=== PATIENT | male | born 1965 | race Caucasian/White ===

== ENCOUNTER 2016-11-20 16:15 | Inpatient (IN) ==
[2016-11-20] MEDS ORDERED: NALOXONE 0.4 MG/ML VIAL ONE (16:44)
[2016-11-20] MEDS ORDERED: NALOXONE 0.4 MG/ML VIAL IV STA (16:51)
[2016-11-20] MEDS ORDERED: SODIUM CHLORIDE 0.9% 1,000 ML IV STA (16:51)
[2016-11-20] MEDS ORDERED: DIPH/TET/ACEL PERT BOOSTER VACCINE 0.5 ML VIAL IM ONE ×2 (16:54→17:14)
--- NOTE | 2016-11-20 17:14 | CT Report ---
Referring physician: Tk Garcia Exam: CT brain without contrast Date: 11/20/2016 Comparison: None Reason: Alteration of consciousness Technique: Axial images of the head were obtained without the use of contrast. Total DLP was 1225.60 mGy*cm. Findings: No hydrocephalus or midline shift is present. There is no evidence of an acute infarction, recent intracranial hemorrhage or abnormal mass effect. More prominent atrophy with prominent subarachnoid spaces in the right temporal and left temporoparietal occipital location with chronic appearing adjacent infarcts. The osseous structures appear intact. The mastoid air cells are clear. Minimal mucosal thickening in the visualized paranasal sinuses. Impression: No acute intracranial abnormality is identified. Chronic bilateral MCA distribution infarcts with associated atrophy and prominent subarachnoid spaces with findings more pronounced on the left. Minimal sinusitis. The CT exam was performed using one or more of the following dose reduction techniques: Automated exposure control and adjustment of the mA and/or kV according to patient size. PROCEDURE INTERPRETED AT [facility] DEPARTMENT OF RADIOLOGY Final Report Signed by: Dr. Hilary Pena
--- NOTE | 2016-11-20 17:17 | CT Report ---
Exam: CT cervical spine without contrast Date: 11/20/2016 Comparison: None Reason: Neck trauma, neck pain after fall Technique: Axial images of the cervical spine were obtained without the use of contrast. Sagittal and coronal reformatted images were also acquired. Total DLP is 303.3 mGy*cm. Findings: The alignment of the cervical spine is unremarkable. Sclerosis with osteophytes. Arterial calcifications are noted. At C2-C3, no neuroforaminal narrowing or spinal canal stenosis is identified. At C3-C4, osteophyte/disc complex which contacts the thecal sac. No spinal stenosis with moderate bilateral foraminal stenosis. At C4-C5, osteophyte/disc complex which compresses the thecal sac. Minimal spinal stenosis and right foraminal stenosis with moderate left foraminal stenosis. At C5-C6, osteophyte/disc complex which contacts thecal sac. No spinal stenosis with moderate bilateral foraminal stenosis. At C6-C7, no neuroforaminal narrowing or spinal canal stenosis is identified. At C7-T1, no neuroforaminal narrowing or spinal canal stenosis is identified. Impression: No evidence of fracture dislocation. Multilevel DDD as above noted. This CT exam was performed using one or more of the following dose reduction techniques: Automatic exposure control, adjustment of the MA and/or KV according to patient size, or use of iterative reconstruction technique. PROCEDURE INTERPRETED AT [facility] DEPARTMENT OF RADIOLOGY Final Report Signed by: Dr. Hilary Pena
--- NOTE | 2016-11-20 17:22 | XRay Report ---
Portable chest Date: 11/20/2016 Clinical history: Alteration of consciousness Comparison: 12/25/2011 Technique: Portable AP sitting chest Findings: The heart is larger in size with prior median sternotomy and cardiac valve replacement. Chronic scarring in the lungs. Old healed fracture of the right seventh posterior rib. Degenerative changes are noted. Impression: The heart is minimally enlarged with prior median sternotomy and cardiac valve replacement. Chronic scarring. Interval fracture of the right seventh posterior rib with callus formation noted. PROCEDURE INTERPRETED AT [facility] DEPARTMENT OF RADIOLOGY Final Report Signed by: Dr. Hilary Pena
--- NOTE | 2016-11-20 17:23 | XRay Report ---
Exam: XR knee 2V BI Date: 11/20/2016 4:54 PM Comparison: None Indication: Knee abrasion and knee pain Technique:[AP and lateral bilateral knee] Findings: Minimal knee joint space narrowing. Small left patellar osteophytes. Minimal soft tissue swelling with no fracture or dislocation. Arterial calcifications are noted. Impression: Mild DJD with soft tissue swelling and arterial calcifications. No fracture or dislocation. PROCEDURE INTERPRETED AT [facility] DEPARTMENT OF RADIOLOGY Final Report Signed by: Dr. Hilary Pena
--- NOTE | 2016-11-20 17:29 | Emergency Department Note ---
Geraldo Ponce Hilary, am scribing for, and in the presence of, Tk Garcia MD 16:55. Radha Ponce Charles R, MD, personally performed the services described in this documentation, ascribed by Daniela Chow in my presence, and it is both accurate and complete 729 . Arrival - Arrival Chief Complaint: Neuro Stated Complaint: found unresponsive per family members ED Nursing Triage Note: Patient lives by his self; his family found him unresponsive today and called EMS at 1500; they are unaware how long he was down and unresponsive; Fentanyl 100mcg/hr removed per EMS. Another 100mcg Fentanyl removed right rib cage on his arrival in the room. He was found laying on his porch; possible fall; left scalp laceration is present Mode of Arrival: Stretcher Limitations: Altered Mental Status Source: RN Notes Reviewed Time Seen by Provider: 11/20/16 16:39 - History of Present Illness HPI Narrative: Pt is a 51 y/o male brought to the ED via EMS with c/o AMS. Pt lives alone and his family found him unresponsive outside in the rain and called EMS at 1500; they are unaware of how long he was down and unresponsive. Fentanyl 100mcg/hr was removed by EMS and then another was removed once in the ED. Multiple lacerations present to his face and old bruising on his arms and knees. GCS - 12. Onset (ago): hour(s) Allergies/Adverse Reactions: Allergies Allergy/AdvReac Type Severity Reaction Status Date / Time Unable to Obtain Allergy Unverified 11/20/16 17:01 Home Medications: Home Medications Medication Instructions Recorded Confirmed Type Carvedilol 25 mg PO BID 11/20/16 11/20/16 History LORazepam [Lorazepam] 2 mg PO TID PRN 11/20/16 11/20/16 History Lisinopril 5 mg PO DAILY 11/20/16 11/20/16 History Tizanidine HCl 4 mg PO TID 11/20/16 11/20/16 History Warfarin Sodium 2.5 mg PO SUSA 11/20/16 11/20/16 History Warfarin Sodium 5 mg PO MOTUWETHFR 11/20/16 11/20/16 History buPROPion HCl [Bupropion Xl] 150 mg PO BID 04/17/17 04/17/17 History Review of System - Review of System ROS unobtainable: due to mental status - Review of System Psychiatric: Present: other Medical,Surgical,& Family Hx - Medical History Cardio: History of: CAD, Hypertension - Social History Smoking Status: Unknown if ever smoked Frequency of Alcohol Use: Unknown Type of Drug Use: Unknown Exam Vital Signs: Vital Signs Temperature 96.5 F L 11/20/16 16:17 Pulse Rate 92 H 11/20/16 16:17 Respiratory Rate 12 11/20/16 16:17 Blood Pressure 66/40 11/20/16 16:17 O2 Sat by Pulse Oximetry 94 L 11/20/16 16:17 - General Exam limited due to: level of distress - Head Head exam: Present: atraumatic, normocephalic - Eye Eye exam: Present: nystagmus (slight), other (slow to react ) - Neck Neck exam: Present: full ROM, trachea midline - Chest Chest inspection: Present: symmetric chest wall rise - Respiratory Respiratory exam: Present: normal lung sounds bilaterally - Cardiovascular Cardiovascular exam: Present: tachycardia - Extremities Exam Extremities exam: Present: full ROM - Back Exam Back exam: Present: full ROM - Neurological Exam Neurological exam: Present: alert, CN II-XII intact - Psychiatric Psychiatric exam: Present: other (Non responsive) - Skin Skin exam: Present: normal color, other (old abraisons on knees and discoloration to arms (bruising)). Absent: warm (cold) Course Course Narrative: Procedure note NG tube was placed - Reevaluation(s) Reevaluation #1: Patient's GCS has changed to 6. I placed several nino in his head he did not move. Patient only response was to Narcan which is short-lived which he did wake up became aggressive. Patient will be intubated to protect his airway Time: 18:33 - Consultations Consultation #1: Hospitalist will admit patient Time: 18:33 Procedures - Intubation sedative: Etomidate Mg Given: 20 paralytic: Vecuronium Mg Given: 10 Laryngoscope: fiber optic video scope ET Tube Size: 7.5 ET Tube Uncuffed: No Tube Secured Depth (cm): 21 Tube Secured Location: lips Tube Placement Confirmation: visualized tube passing through cords, equal breath sounds bilaterally, confirmation by capnometry, confirmation detector color change Patient Tolerated Procedure: well, no complications Intubation Complications: none - Laceration Laceration 1 Site: scalp Size (cm): 2 Description: irregular Depth: simple, single layer Pre-repair: wound explored, irrigated extensively, deep structures intact Skin layer closed with: other (Staple gun) Number of sutures: 5 Results - Labs CBC & BMP: 11/20/16 17:42 11/20/16 17:42 Lab Results: I have reviewed the patients labs - Diagnostic Findings Procedure: CT: report reviewed by me (Cervical spine: No evidence of fracture dislocation. Multilevel DDD as above noted. Head/brain: No acute intracranial abnormality is identified. Chronic bilateral MCA distribution infarcts with associated atrophy and prominent subarachnoid spaces with findings more pronounced on the left. Minimal sinusitis.) Critical Care Time Critical Care Time: Yes Total Critical Care Time: 90 Disposition Clinical Impression: Drug overdoses, Decreased LOC, Hypotension, Debility, Failure to thrive, Chronic opiate dependency, Acute renal failure, Hyperkalemia, Dehydration, Polysubstance abuse Case discussed with: patient, patient's family Disposition: Still a Patient Condition: Critical Time of Disposition: 18:23
[2016-11-20] MEDS ORDERED: ceFAZolin 1,000 MG VIAL ONE (17:36)
[2016-11-20 17:58] LABS: Basophils % 0.1 % (0.0-0.8); Hematocrit 36.7 VOL% (42.0-52.0); Hemoglobin 11.9 GM/DL (14.0-18.0); Immature Granulocytes % 0.3 %; Immature Granulocytes Absolute 0.03 #; Lymphocytes # 0.5 10*3/uL (1.4-4.0); Lymphocytes % 4.9 % (21.2-54.2); Mean Corpuscular HGB Conc 32.4 GM/DL (32-36); Mean Corpuscular Hemoglobin 31 PG (27-34); Mean Corpuscular Volume 95.6 FL (87-102); Mean Platelet Volume 12.3 FL (9.6-12.0); Monocytes # 1.6 10*3/uL (0.11-0.8); Monocytes % 14.9 % (1.7-12.7); Neutrophils # 8.6 10*3/uL (1.4-7.4); Neutrophils % 79.8 % (38.7-73.9); Platelet Count 151 T/CUMM (130-400); Red Blood Count 3.84 MC/CUMM (3.8-5.5); Red Cell Distribution Width 14.3 % (9.3-17.3); White Blood Count 10.8 T/CUMM (4-12)
[2016-11-20 18:07] LABS: Ammonia 16 UMOL/L (11-32)
[2016-11-20 18:12] LABS: Apearance,Urine CLOUDY (Clear); Bilirubin,Urine Negative (Negative); Blood, Urine Negative (Negative); Glucose,Urine (UA) Negative (Negative); Ketones,Urine 5 mg/dL (Negative); Mucus,Urine Occasional /LPF (Occasional); Nitrite,Urine Negative (Negative); Protein,Urine 30 MG/DL; Urine Color Amber (Yellow); Urine Specific Gravity 1.021 (1.001-1.035); Urine Urobilinogen < 2.0 EU/DL (0.2-1.0); WBC,Urine 3 /HPF (0-6)
[2016-11-20 18:21] LABS: Alanine Aminotransferase 89 U/L (16-61); Albumin 3.6 G/DL (3.4-5.0); Alkaline Phosphatase 82 U/L (45-117); Aspartate Amino Transferase 274 U/L (0-37); Blood Urea Nitrogen 115 MG/DL (7-18); Calcium 7.1 MG/DL (8.5-10.1); Glucose 68 MG/DL (74-106); Magnesium 3.1 MG/DL (1.8-2.4); Osmolality,Calculated 309.7 MOS/KG (273-304); Sodium 138 MMOL/L (136-145); Total Protein 6.2 G/DL (6.4-8.3)
[2016-11-20 18:22] LABS: Troponin I Only 0.058 NG/ML (0.00-0.045)
[2016-11-20] MEDS ORDERED: DEXTROSE 50% 25 GM/50 ML VIAL IV STA (18:25)
[2016-11-20] MEDS ORDERED: CALCIUM GLUCONATE 1,000 MG in SODIUM CHLORIDE 0.9% 100 ML IV ONE (18:29)
[2016-11-20] MEDS ORDERED: CALCIUM CHLORIDE 1,000 MG/10 ML SYRINGE IV ONE (18:30)
[2016-11-20] MEDS ORDERED: DEXTROSE 50% 25 GM/50 ML VIAL IV ONE (18:30)
[2016-11-20] MEDS ORDERED: PHENYLEPHRINE DRIP 40 MG/250 ML PREMIX IV ONE (18:34)
[2016-11-20] MEDS: PHENYLEPHRINE DRIP 40 MG/250 ML PREMIX IV SCH ×2 (18:39→23:21)
[2016-11-20] MEDS ORDERED: INSULIN REGULAR 100 UNIT/ML ONE (18:47)
[2016-11-20] MEDS ORDERED: INSULIN REGULAR 100 UNIT/ML IV STA (18:51)
[2016-11-20] MEDS ORDERED: LACTATED RINGERS 1,000 ML IV ONE (18:51)
[2016-11-20 18:56] LABS: Barbiturates Screen,Urine Negative (Negative); Benzodiazepines Screen,Urine Positive (Negative); Cannabinoid Screen,Urine Negative (Negative); Opiate Screen,Urine Positive (Negative); Phencyclidine Screen,Urine Negative (Negative)
[2016-11-20] MEDS ORDERED: VECURONIUM 10 MG VIAL IV ONE (19:15)
[2016-11-20] MEDS ORDERED: ETOMIDATE 20 MG/10 ML VIAL IV ONE (19:15)
[2016-11-20 19:28] LABS: PT Patient Result > 200.0 SECS
[2016-11-20 19:31] LABS: INR > 20.0
[2016-11-20] MEDS ORDERED: PHYTONADIONE 10 MG/1 ML AMP SUBCUT ONE ×2 (19:39)
--- NOTE | 2016-11-20 19:39 | XRay Report ---
Portable chest Date: 11/20/2016 Clinical history: Endotracheal tube placement Comparison: 11/20/2016 Technique: Portable AP sitting chest Findings: The heart remains enlarged with prior median sternotomy and cardiac valve replacement. The tip of the endotracheal tube projects the level clavicles. The tip of the nasogastric tube projects at the GE junction. Chronic scarring in the lungs with progressive parenchymal findings in the lower lung zones. Old healed right seventh posterior rib fracture. Impression: Endotracheal tube in satisfactory position. The tip of the nasogastric tube projects at the GE junction and should be advanced further into the stomach. Progressive atelectasis/edema/infiltration at the lung bases. Chronic scarring in patient with prior median sternotomy and cardiac valve replacement. PROCEDURE INTERPRETED AT [facility] DEPARTMENT OF RADIOLOGY Final Report Signed by: Dr. Hilary Pena
[2016-11-20] MEDS ORDERED: SODIUM CHLORIDE 0.9% 250 ML IV PRN (19:41)
[2016-11-20] MEDS ORDERED: PHYTONADIONE 10 MG/1 ML AMP ONE (19:45)
[2016-11-20] MEDS ORDERED: SODIUM CHLORIDE 0.9% 1,000 ML IV ONE ×2 (20:30→23:43)
[2016-11-20] MEDS ORDERED: MORPHINE 2 MG/1 ML SYRINGE IV PRN (20:33)
[2016-11-20] MEDS ORDERED: ONDANSETRON 4 MG/2 ML VIAL IV PRN (20:33)
[2016-11-20] MEDS ORDERED: ENOXAPARIN 40 MG/0.4 ML SYRINGE SUBCUT SCH (20:33)
[2016-11-20] MEDS ORDERED: MIDAZOLAM 100 MG in SODIUM CHLORIDE 0.9% 80 ML IV SCH (20:33)
[2016-11-20] MEDS ORDERED: cefTRIAXone 1,000 MG in SODIUM CHLORIDE 0.9% 100 ML IV SCH (20:33)
[2016-11-20] MEDS ORDERED: LEVOFLOXACIN INJ 500 MG in PREMIX 1 EACH IV SCH ×2 (20:33→21:00)
[2016-11-20] MEDS ORDERED: FAMOTIDINE 20 MG/2 ML VIAL IV SCH (20:33)
--- NOTE | 2016-11-20 20:56 | Hospitalist History & Physical ---
Assessment and Plan (1) Acute renal failure Status: Acute Assessment and plan: The patient is admitted to the hospital with delirium due to metabolic encephalopathy on account of polysubstance abuse. The patient has apparently been unresponsive for a good period of time as he has acute renal failure with creatinine of 16. The patient's Coumadin is supratherapeutic with INR greater than measurable. The patient will be admitted to the hospital for IV hydration and mechanical ventilation. We will use phenylephrine infusion to maintain appropriate hemodynamics and continue mechanical ventilation to ensure appropriate oxygenation. The patient will receive fluid resuscitation. I am hopeful that some of the metabolic derangements we see now will be simply reversible. Current Visit: Yes Qualifiers: Acute renal failure type: with acute tubular necrosis Qualified Code(s): N17.0 - Acute kidney failure with tubular necrosis (2) Coumadin toxicity Status: Acute Current Visit: Yes (3) Hyperkalemia Status: Acute Current Visit: Yes (4) Hypotension Status: Acute Current Visit: Yes (5) Polysubstance abuse Status: Acute Current Visit: Yes History of Present Illness Chief complaint: Altered mental status History of present illness: Mr. Stafford is a 51 year old male with history of aortic valve disease. The patient has had 2 previous aortic valve replacements. He is followed at [facility] in [place]. The patient was at home in his usual state of health. His family found him laying in the yard in front of his house and he was unresponsive. Ambulance was summoned the patient was brought to the emergency room. I coordinated care with Dr. Garcia. The emergency room physician states that the patient did wake up briefly when given Narcan. The patient had Duragesic patches on his body at the time he came to the emergency room. After the Narcan began to wear off the patient had respiratory depression and required intubation to protect the airway in the emergency room. The patient has had relative hypotension which has been responding to fluid challenge and we had to initiate Kar-Synephrine infusion. The patient is now admitted to critical care area for further evaluation of metabolic encephalopathy due to polysubstance abuse. Home Medications Medication Instructions Recorded Confirmed Type Carvedilol 25 mg PO BID 11/20/16 11/20/16 History LORazepam [Lorazepam] 2 mg PO TID PRN 11/20/16 11/20/16 History Lisinopril 5 mg PO DAILY 11/20/16 11/20/16 History Tizanidine HCl 4 mg PO TID 11/20/16 11/20/16 History Warfarin Sodium 2.5 mg PO SUSA 11/20/16 11/20/16 History Warfarin Sodium 5 mg PO MOTUWETHFR 11/20/16 11/20/16 History buPROPion HCl [Bupropion Xl] 150 mg PO BID 11/20/16 11/20/16 History Allergies Allergy/AdvReac Type Severity Reaction Status Date / Time Unable to Obtain Allergy Unverified 11/20/16 17:01 Medical,Surgical,& Family Hx - Medical History Cardio: History of: CAD, Hypertension - Surgical History Cardiac Surgeries: Sugical HX of: Cardiac Surgery (Aortic valve replacement) - Family History Family History: Reports;: Family Hypertension - Social History Smoking Status: Unknown if ever smoked Frequency of Alcohol Use: Unknown Type of Drug Use: Methamphetamine Marital Status: Single Lives With:: Alone Functional capacity: uses cane/walker 12 point system: reviewed and no additional remarkable complaints except as stated Exam - Constitutional Exam: Constitutional System: The patient is presently unresponsive. He is orally intubated and mechanically ventilated Head: Normocephalic, atraumatic. Ears, Nose and Throat System: No evidence of Otitis or Mastoiditis. No epistaxis or discharge Eyes System: Pupils equal, round, and reactive. Extraocular muscles intact. Neck: Supple, without adenopathy, No jugular venous distention. No thyromegaly , neck mass, or prior surgery apparent. Respiratory System: Chest clear to auscultation. Cardiovascular System: Heart with regular rate and rhythm. No murmur. GI System: Abdomen soft, nontender. Normo active bowel sounds present. Musculoskeletal System: limbs with no pedal edema. Full distal pulses. Neurological System: [Not testable due to obtundation Psychiatric System: Not testable due to obtundation Results - Labs CBC & BMP: 11/20/16 17:42 11/20/16 17:42 Lab Results: I have reviewed the past 24 hour labs Quality Measures - Stroke Onset of Symptoms Date: 11/20/16
[2016-11-20] MEDS: SODIUM CHLORIDE 0.9% 1,000 ML IV SCH (21:43)
[2016-11-20 22:17] LABS: Band Neutrophils 7 % (0-10); Lymphocytes 9 % (20-55); Segmented Neutrophils 69 % (50-85); Total Cells Counted 100
[2016-11-20 22:19] LABS: Platelet Estimate Adequate
[2016-11-20] MEDS ORDERED: SODIUM CHLORIDE 0.9% 2,000 ML IV ONE (23:30)
[2016-11-20] MEDS ORDERED: SODIUM BICARB INJ 150 MEQ in STERILE WATER INJ 850 ML IV SCH (23:30)
[2016-11-21] MEDS: PHENYLEPHRINE INJ 160 MG in SODIUM CHLORIDE 0.9% 234 ML IV SCH ×2 (01:13→08:41)
[2016-11-21] MEDS ORDERED: SODIUM CHLORIDE 0.9% 1,000 ML IV ONE ×3 (01:43→11:00)
[2016-11-21] MEDS: SODIUM CHLORIDE 0.9% 1,000 ML IV SCH ×4 (02:56→12:51)
[2016-11-21] MEDS ORDERED: NOREPINEPHRINE 16 MG in SODIUM CHLORIDE 0.9% 234 ML IV SCH (04:00)
[2016-11-21] MEDS: PANTOPRAZOLE 40 MG VIAL IV SCH ×2 (04:45→10:42)
[2016-11-21 04:52] LABS: ABG Base Excess -17.2 MMOL/L (-2.5-2.5); ABG HCO3 11.7 MMOL/L (20-26); ABG Oxygen Saturation 99.7 % (95-100); ABG PCO2 29.9 MM HG (35-48); ABG TCO2 9.9 MMOL/L (23-27); Pt O2 Delivery Device Ventilator
[2016-11-21 05:04] LABS: Eosinophils % 0.5 % (0.00-10.9); Hematocrit 33.7 VOL% (42.0-52.0); Hemoglobin 10.8 GM/DL (14.0-18.0); Lymphocytes # 0.3 10*3/uL (1.4-4.0); Lymphocytes % 15.9 % (21.2-54.2); Mean Corpuscular Hemoglobin 31 PG (27-34); Mean Corpuscular Volume 97.7 FL (87-102); Mean Platelet Volume 12.1 FL (9.6-12.0); Monocytes # 0.2 10*3/uL (0.11-0.8); Monocytes % 9.7 % (1.7-12.7); Neutrophils # 1.5 10*3/uL (1.4-7.4); Neutrophils % 73.9 % (38.7-73.9); Platelet Count 118 T/CUMM (130-400); Red Blood Count 3.45 MC/CUMM (3.8-5.5); Red Cell Distribution Width 14.5 % (9.3-17.3); White Blood Count 2.1 T/CUMM (4-12)
[2016-11-21 05:33] LABS: Band Neutrophils 7 % (0-10); Lymphocytes 21 % (20-55); Metamyelocytes 1 %; Myelocytes 4 %; Platelet Estimate Decreased; Segmented Neutrophils 59 % (50-85)
[2016-11-21 05:34] LABS: Burr Cells Slight; Hypochromasia Slight; Ovalocytes Slight; Total Cells Counted 100
[2016-11-21 05:38] LABS: PT Patient Result > 200.0 SECS
[2016-11-21] MEDS ORDERED: SODIUM BICARBONATE 50 MEQ/50 ML SYRINGE IV ONE (05:38)
[2016-11-21 05:40] LABS: INR > 20.0
--- NOTE | 2016-11-21 07:33 | EKG Report ---
Stationary ECG Study [facility] ER Test Date: 11/20/2016 5:19:12 PM Pat Name: NICKY OLGUIN Department: Room: 127 Gender: M Director Vaccine: : 1965 Requested by: Tk Day Order Number: [id number] Reading MD: TOMMY ALLEN Intervals [place] Rate: 175 P: 999 [place]: 0 QRS: -45 QRSD: 200 T: 0 QT: 252 QTc: 346 Interpretive Statements UNCERTAIN IRREGULAR RHYTHM LEFT AXIS DEVIATION LBBB Electronically Signed On 11-23-16 07:43:41 CDT by TOMMY ALLEN [email or web address]
--- NOTE | 2016-11-21 07:36 | EKG Report ---
Stationary ECG Study [facility] Test Date: 11/21/2016 5:37:25 AM Pat Name: NICKY OLGUIN Department: Room: 127 Gender: M Sheriffs: : 1965 Requested by: Rikki Deleon Order Number: [id number] Reading MD: KAILYN WELSH Intervals [place] Rate: 122 P: 999 [place]: 0 QRS: -37 QRSD: 146 T: 97 QT: 335 QTc: 408 Interpretive Statements ATRIAL FLUTTER/TACHYCARDIA WITH RAPID VENTRICULAR RESPONSE MARKED LEFT AXIS DEVIATION LEFT BUNDLE BRANCH BLOCK Electronically Signed On 11-27-16 07:29:37 CDT by KAILYN WELSH [email or web address]
--- NOTE | 2016-11-21 07:41 | XRay Report ---
XR chest 1V portable Indication: Shortness of breath Comparison: 20 November 2016 Findings: The heart and mediastinum are stable in size and configuration. Tubes are unchanged in position. The pulmonary vascularity is normal in caliber. No lung infiltrates, effusions, pneumothorax or other abnormality is demonstrated. Impression: No significant change. PROCEDURE INTERPRETED AT [facility] DEPARTMENT OF RADIOLOGY Final Report Signed by: Dr. Laci Harden
[2016-11-21 09:04] LABS: Albumin 2.1 G/DL (3.4-5.0); Bilirubin,Total 0.8 MG/DL (0.2-1.0); Calcium 6.6 MG/DL (8.5-10.1)
[2016-11-21 09:05] LABS: Potassium 5.5 MMOL/L (3.5-5.1)
--- NOTE | 2016-11-21 11:33 | Pulmonology Consult Note ---
History of Present Illness Chief complaint: Ventilator. Hypotension. Drug abuse History of present illness: Mr. Stafford is a 51 year old black male whom I am I been asked to see in pulmonary consultation to manage patient's pulmonary status and to manage mechanical ventilation. This patient was found at home landing the front yard and he was unresponsive. An ambulance was called and patient was brought to the emergency room. Patient woke up briefly and was given Narcan. He had Duragesic patches on his body at the time he came to the emergency room. Once the Narcan began to wear off the patient experienced respiratory depression he required intubation to protect his airways. He was hypotensive and he has remained hypotensive with a systolic blood pressure of about 50 while on at least 2 pressor agents. Patient has multiple abrasions on his extremities. See photographs and notes. Patient is unable to give any additional review of systems so the remainder the review of systems is negative. Allergies. None known. Home medicines. See below Active medicines. See below Past history. Heart disease. High blood pressure. 2 previous aortic valve replacements. Patient is followed at [facility] in [place]. Social history. Uses methamphetamine. Single and lives alone. Uses a cane and a walker. Family history. Reported is positive for high blood pressure Toxicology. Positive for opiates. Positive for amphetamine. Positive for benzodiazepines. Lab. Admit white count was 10,800 has dropped to 2100. H&H is 10.8/33.7. Sodium is 143. Admit potassium was 7.0 and is dropped 5.5. Chloride is 114. Admit creatinine was 16.3 with a BUN of 115. These are now dropped to 12.9 118 respectively. Transaminases are elevated. Creatinine is 7412. Total protein albumin and globulins are low at 4.0, 2.1, 1.9 respectively. INR. Greater than 20 ABGs. Mechanical ventilation. FiO2 100%. PH 7.16. PCO2 is 29.9. PO2 is 369. Bicarb is 11.7. Physical exam. Vital signs. See below. Systolic blood pressure is 50 on 2 pressor agents and fluid Chest. Large airway congestion Heart. Rapid Abdomen. I hear no bowel sounds Skin various abrasions on the extremities. See documentation on the notes. Neuro. Obtunded. Impossible to do a good exam. The remainder the physical exam is noncontributory. Impression. 1. Drug abuse. 2. Severe hypotension of undetermined etiology. 3. Acute respiratory failure for oxygen and carbon dioxide requiring intubation mechanical ventilation 4. Acute renal failure. Severe metabolic acidosis. 5. Aortic valve replacement 2 6. Markedly prolonged INR. Greater than 20. 7. Marked elevation of CPK. 7412 Plans. 1. I agree with antibiotics and pressor agents. 2. Mechanical ventilator weaning protocol. 3. While on mechanical ventilation physical therapy protocol 4. Proton pump inhibitor protocol 5. Deep venous thrombophlebitis prevention protocol. 6. Prognosis is poor 6. Daily chest x-ray, ABGs and lab Home Medications Medication Instructions Recorded Confirmed Type Carvedilol 25 mg PO BID 11/20/16 11/20/16 History LORazepam [Lorazepam] 2 mg PO TID PRN 11/20/16 11/20/16 History Lisinopril 5 mg PO DAILY 11/20/16 11/20/16 History Tizanidine HCl 4 mg PO TID 11/20/16 11/20/16 History Warfarin Sodium 2.5 mg PO SUSA 11/20/16 11/20/16 History Warfarin Sodium 5 mg PO MOTUWETHFR 11/20/16 11/20/16 History buPROPion HCl [Bupropion Xl] 150 mg PO BID 11/20/16 11/20/16 History Allergies Allergy/AdvReac Type Severity Reaction Status Date / Time No Known Allergies Allergy Verified 11/21/16 00:40 Exam (Pulmonay) H&P - Constitutional Vitals: Period Temp Pulse Resp BP Sys/Solis Pulse Ox Last 24 Hr 97 F-97.9 F 113-132 12-23 51-146/25-85 93-100 Medical,Surgical,& Family Hx - Medical History Cardio: History of: CAD, Hypertension, Cardiovascular Problems (Cabg) Psychological: History of: Anxiety Disorders, Depression, Violent Behavior Neurology: History of: Cerebrovascular Accident (6yrs ago) - Surgical History Cardiac Surgeries: Sugical HX of: Cardiac Surgery (Aortic valve replacement) - Family History Family History: Reports;: Family Diabetes (parents, grandparent, sister), Family Hypertension - Social History Smoking Status: Unknown if ever smoked Frequency of Alcohol Use: Occasionally Type of Drug Use: Opiates, Methamphetamine Results - Labs CBC & BMP: 11/21/16 03:53 11/21/16 07:23 Quality Measures - Stroke Onset of Symptoms Date: 11/20/16
[2016-11-21 11:48] VITALS: BP 44/30
--- NOTE | 2016-11-21 12:46 | Discharge Summary ---
Hospital Course - Hospital Course Hospital Course: Cause of : Multiple organ system failure Multiple drug overdose Multiple substance addiction Status post aortic valve replacement The patient presented after being found down in his front yard. He was brought to the hospital. Drug screen was positive for multiple substances. Family reports a long history of drug abuse. He was admitted to the hospital and placed on the ventilator. He required vasopressors. Urine output was negligible. He did not respond to vasopressors, fluid challenge, and IV antibiotics. Family requested no heroic measures. The patient was kept comfortable, and quietly with family members present. Cause of is listed above. Autopsy was not requested. Retail Buyer has been called since the patient had been in the hospital for less than 24 hours. This note was completed using [employer] voice recognition software. There may be candle molder errors as a result. Discharge Plan - Discharge Data Disposition: Condition at Discharge: - Discharge Medications No Action Tizanidine HCl 4 mg PO TID Lisinopril 5 mg PO DAILY Carvedilol 25 mg PO BID buPROPion HCl [Bupropion Xl] 150 mg PO BID Warfarin Sodium 2.5 mg PO SUSA Warfarin Sodium 5 mg PO MOTUWETHFR LORazepam [Lorazepam] 2 mg PO TID PRN PRN Reason: Anxiety - Follow Up or Referral - Forms/Instructions Exam - Constitutional Vitals: Period Temp Pulse Resp BP Sys/Solis Pulse Ox Last 24 Hr 96.8 F-97.9 F 96-132 12-23 28-146/19-85 75-100 Discharge Results Procedures and tests throughout hospitalization: Pending Orders 11/21/16 08:00 Consult to Interventional Rad Routine 11/21/16 08:46 MRSA Surveillence, Inf Control Routine 11/22/16 04:00 XR chest 1V portable IN AM Arterial Blood Gas IN AM 11/23/16 04:00 XR chest 1V portable IN AM Arterial Blood Gas IN AM Labs on day of discharge: Labs from last 24 hours 11/21/16 11/21/16 11/21/16 07:23 04:44 04:42 WBC RBC Hgb Hct MCV MCH MCHC RDW Plt Count MPV Neut % (Auto) Lymph % (Auto) Castro % (Auto) Eos % (Auto) Baso % (Auto) Neut # (Auto) Lymph # (Auto) Castro # (Auto) Eos # (Auto) Baso # (Auto) Total Counted Immature Gran % Nucleated RBC % Immature Gran # Segmented Neutrophils Band Neutrophils Lymphocytes Monocytes Metamyelocytes Myelocytes Nucleated RBCs # Platelet Estimate Hypochromasia Ovalocytes Emery Cells Morphology Comment INR > 20.0 H* PT Patient/Control Mix > 200.0 ABG pH 7.160 L* ABG pCO2 29.9 L ABG pO2 369.0 H ABG HCO3 11.7 L ABG Total CO2 9.9 L ABG O2 Saturation 99.7 ABG Base Excess -17.2 L FiO2 100.00 Sodium 143 Potassium 5.5 H Chloride 114 H Carbon Dioxide 13 L Anion Gap 21.5 H BUN 118 H Creatinine 12.90 H GFR Calculation 5 BUN/Creatinine Ratio 9.00 Glucose 60 L Calculated Osmolality 320.0 H Calcium 6.6 L Total Bilirubin 0.80 AST 21 ALT 67 H Alkaline Phosphatase 57 Total Creatine Kinase 7412 H Total Protein 4.0 L Albumin 2.1 L Globulin 1.9 L Albumin/Globulin Ratio 1.1 Urine Opiates Screen Ur Barbiturates Screen Ur Phencyclidine Scrn U Amphetamine/Methamph U Benzodiazepines Scrn U Cocaine Metab Screen U Cannabinoids Screen 11/21/16 11/20/16 11/20/16 03:53 18:50 18:42 WBC 2.1 L D RBC 3.45 L Hgb 10.8 L Hct 33.7 L MCV 97.7 MCH 31 MCHC 32.0 RDW 14.5 Plt Count 118 L D MPV 12.1 H Neut % (Auto) 73.9 Lymph % (Auto) 15.9 L Castro % (Auto) 9.7 Eos % (Auto) 0.5 Baso % (Auto) 0.0 Neut # (Auto) 1.5 Lymph # (Auto) 0.3 L Castro # (Auto) 0.2 Eos # (Auto) 0.0 Baso # (Auto) 0.0 Total Counted 100 Immature Gran % 0.0 Nucleated RBC % 0.0 Immature Gran # 0.00 Segmented Neutrophils 59 Band Neutrophils 7 Lymphocytes 21 Monocytes 8 Metamyelocytes 1 Myelocytes 4 Nucleated RBCs # 0.00 Platelet Estimate Decreased Hypochromasia Slight Ovalocytes Slight Lara Cells Slight Morphology Comment INR > 20.0 H* PT Patient/Control Mix > 200.0 ABG pH ABG pCO2 ABG pO2 ABG HCO3 ABG Total CO2 ABG O2 Saturation ABG Base Excess FiO2 Sodium Potassium Chloride Carbon Dioxide Anion Gap BUN Creatinine GFR Calculation BUN/Creatinine Ratio Glucose Calculated Osmolality Calcium Total Bilirubin AST ALT Alkaline Phosphatase Total Creatine Kinase Total Protein Albumin Globulin Albumin/Globulin Ratio Urine Opiates Screen Positive H Ur Barbiturates Screen Negative Ur Phencyclidine Scrn Negative U Amphetamine/Methamph Positive H U Benzodiazepines Scrn Positive H U Cocaine Metab Screen Negative U Cannabinoids Screen Negative DS: Provider Date of admission: 11/20/16 18:38 Primary care physician: . No PCP Attending physician on admission: Chandler Murguia MD Consults: 11/20/16 20:33 Consult to Physician [CONS] Routine Comment: respiratory failure on vent Consulting Provider: Jorge Arce Person Notified: attila Date Notified: 11/21/16 Time Notified: 09:50 Consult Notification Comment: left message earlier about consult @ clinic as well 11/21/16 05:41 Consult to Anesthesiology [CONS] Routine Consulting Provider: Rikki Deleon Reason for Anesthesiology: Arterial Line 11/21/16 06:28 Consult to Anesthesiology [CONS] Routine Consulting Provider: Reason for Anesthesiology: Central Line Discharging clinician: Elie Orozco MD Expected date of discharge: 11/21/16
--- NOTE | 2016-11-21 13:08 | Physician Query Form ---
CLICK EDIT DOCUMENT TO SELECT QUERY ANSWER --> OK --> SIGN Angela Shen RN Clinical Bakery Assistant W) [phone] (f) [phone] [email or web address] PROVIDERS: Make your selection(s) from the choices in EACH section by typing an "x" and enter comments in the comment section. Please use your independent medical judgment in providing your response. This request does not imply that any particular answer is desired or expected. CLINICAL INDICATORS: (Providers should not edit this section) Based on documentation of "Drug overdose" "Polysubstance abuse" "Severe metabolic acidosis" AST of 247. ALS of 89. Treated with IV fluids and multiple boluses. Monitored with repeat lab checks. Based on the above, could you clarify the appropriate diagnosis, if significant , that supports the above abnormalities and additional evaluation, monitoring, and/or treatment rendered: ( X) Treated for Shock Liver ( ) Was NOT Treated for Shock Liver ( ) Other, please specify: ( ) Clinically unable to determine COMMENTS: Use of terms such as suspected, likely, or probable (associated with a specific diagnosis that is being evaluated, monitored, or treated as if it exists) are acceptable and can be restated in the discharge summary if not ruled out. MTDD
--- NOTE | 2016-11-21 13:14 | Physician Query Form ---
CLICK EDIT DOCUMENT TO SELECT QUERY ANSWER --> OK --> SIGN Angela Shen RN Clinical Data Capture Specialist W) [phone] (f) [phone] [email or web address] PROVIDERS: Make your selection(s) from the choices in EACH section by typing an "x" and enter comments in the comment section Please use your independent medical judgment in providing your response. This request does not imply that any particular answer is desired or expected. CLINICAL INDICATORS: (Providers should not edit this section) Based on documentation of "Drug overdose" "Hypotensive" "He required vasopressors. He did not respond to vasopressors" "Marked elevation of CPK. 7412" Positive drug screen for Amphetamines, Opiates, and Benzos. Monitored. Treated with IV fluids, IV pressors. Please clarify the following regarding the documented myocardial infarction: TYPE: ( ) STEMI (Q wave, Transmural) ( ) NSTEMI (Non-Q wave, Nontransmural) ( X) Clinically unable to determine LOCATION - select all that apply ( ) Anterior wall ( ) Inferior wall ( ) Posterior wall ( ) Lateral wall ( ) Other, please specify: (X ) Clinically unable to determine VESSEL INVOLVED - select all that apply ( ) Left main coronary artery ( ) Left anterior descending coronary artery ( ) Right coronary artery ( ) Left circumflex coronary artery ( ) Other, please specify: ( X) Clinically unable to determine ONSET: (X ) Within the past 4 weeks ( ) Greater than 4 weeks ago ( ) Subsequent (defined as new ND within 4 weeks of previous ND) ( ) Old or healed ND with no current concerns or complications ( ) Intraoperative ( ) Post procedural (postoperative) ( ) Clinically unable to determine COMMENTS: Use of terms such as suspected, likely, or probable (associated with a specific diagnosis that is being evaluated, monitored, or treated as if it exists) are acceptable and can be restated in the discharge summary if not ruled out. MTDD
[2016-11-21] MEDS ORDERED: ENOXAPARIN 30 MG/0.3 ML SYRINGE SUBCUT SCH (21:00)
== END 2016-11-21 12:19 | disposition expired | DRG 917 ==
LOC: EDUNIT# → N.ED 16:15 → SUATTDRO 18:38 → N.EDINP 18:38 → N.CC 20:10
PROVIDERS: ADMIT Internal Medicine; ATTEND Internal Medicine Geriatric Medicine